=== PATIENT | female | born 1985 | race Hispanic/Latino ===

== ENCOUNTER 2017-11-09 07:27 | Observation (INO) | payer OTHER ==
[2017-11-08 09:06] VITALS: BMI 23.9
[2017-11-09] MEDS ORDERED: CEFAZOLIN/Water 2 GM/20 ML SYRINGE ONE (07:54)
[2017-11-09 08:30] LABS: #Basophils 0.1 thou/uL (0.0-0.2); #Eosinphils 0.1 thou/uL (0.0-0.7); #Lymphocytes 1.6 thou/uL (1.20-3.40); #Monocytes 0.3 thou/uL (0.11-0.59); %Basophils 0.7 % (0.0-1.0); %Eosinophils 1.5 % (0.0-10.0); %Lymphocytes 22.8 % (21.0-51.0); %Monocytes 4.4 % (0.0-10.0); Hematocrit 43.1 % (36.0-47.0); Mean Platelet Volume 6.7 fL (7.4-10.4); Red Blood Cell (RBC) Count 4.31 mill/uL (4.20-5.40); White Blood Cell (WBC) Count 7.1 thou/uL (4.8-10.8)
[2017-11-09] MEDS ORDERED: Midazolam HCl 2 mg/2 ml Vial ONE (08:38)
[2017-11-09] MEDS ORDERED: Fentanyl 250 MCG/5 ML VIAL ONE (08:49)
[2017-11-09] MEDS ORDERED: Bupivacaine/Epinephrine 0.25% 30 ML VIAL ONE ×2 (09:02→11:07)
[2017-11-09] MEDS ORDERED: Thrombin 5000 UNITS/5 ML VIAL ONE (09:02)
[2017-11-09 09:19] LABS: Bilirubin Negative (Negative); Glucose, Urine (Dipstick) Negative (Negative); Ketone, Urine Negative (Negative); Nitrite Negative (Negative); Protein, Urine (Dipstick) Negative (Neg-Trace); Urobilinogen 0.2 mg/dL (0.2-1.0)
[2017-11-09 09:21] LABS: Bacteria/HPF None Seen HPF (None Seen); Blood, Urine Trace (Negative); Hyaline Casts/LPF 0-3 HYALINE CAST LPF (0-3 Hyaline); Squamous Epithelial 0-3 HPF (0-3); WBC/HPF 0-3 HPF (0-3)
[2017-11-09] MEDS ORDERED: Scopolamine 1.5 mg/72 hour Patch ONE (10:04)
[2017-11-09] MEDS ORDERED: Calcium Chloride 1 GM/10 ML Abboject SYRINGE ONE (10:41)
[2017-11-09] MEDS ORDERED: diphenhydrAMINE 25 MG CAP PO PRN (12:06)
[2017-11-09] MEDS ORDERED: Bisacodyl 10 MG SUPP PR PRN (12:06)
[2017-11-09] MEDS ORDERED: Simethicone Chewable 80 MG TAB PO PRN (12:06)
[2017-11-09] MEDS ORDERED: HYDROcodone/Acetaminophen 10/325 mg Tablet PO PRN (12:06)
[2017-11-09] MEDS ORDERED: Zolpidem Tartrate 5 MG TAB PO PRN (12:06)
[2017-11-09] MEDS ORDERED: Ondansetron HCl/PF 4 MG/2 ML Vial IVP PRN ×2 (12:06→20:02)
[2017-11-09] MEDS ORDERED: Meperidine HCl/PF 25 MG/ML VIAL ONE (12:17)
[2017-11-09] MEDS ORDERED: Fentanyl 100 MCG/2 ML VIAL ONE ×2 (12:38→13:27)
[2017-11-09] MEDS: Lactated Ringer's 1,000 ML IV SCH ×2 (14:33→21:10)
[2017-11-09] MEDS ORDERED: Acetaminophen 1,000 MG in Premix Bag 1 BAG IVPB SCH (15:00)
[2017-11-09] MEDS ORDERED: Ketorolac Tromethamine 30 MG/ML VIAL ONE (15:42)
[2017-11-09] MEDS ORDERED: Ondansetron HCl/PF 4 MG/2 ML Vial ONE (15:42)
[2017-11-09] MEDS ORDERED: Dexamethasone 20 MG/5 ML VIAL ONE (15:42)
[2017-11-09] MEDS ORDERED: Propofol 200 MG/20 ML VIAL ONE (15:42)
[2017-11-09] MEDS ORDERED: PHENYLEPHRINE-NS 100 MCG/ML 10 ML SYRINGE ONE (15:42)
[2017-11-09] MEDS ORDERED: Glycopyrrolate 0.2 MG/ML 5 ML SYRINGE ONE (15:42)
[2017-11-09] MEDS: Ketorolac Tromethamine 30 MG/ML VIAL IVP SCH ×2 (17:53→23:43)
[2017-11-09] MEDS ORDERED: Ondansetron HCl/PF 4 MG/2 ML Vial SLOW IVP SCH (18:45)
[2017-11-10 06:00] LABS: Hematocrit 34.9 % (36.0-47.0); Mean Platelet Volume 6.9 fL (7.4-10.4); Red Blood Cell (RBC) Count 3.46 mill/uL (4.20-5.40); White Blood Cell (WBC) Count 9.9 thou/uL (4.8-10.8)
[2017-11-10] MEDS: Ibuprofen 800 MG TAB PO SCH ×2 (06:13→14:16)
[2017-11-10] MEDS: Lactated Ringer's 1,000 ML IV SCH ×2 (06:15→12:14)
[2017-11-10 12:01] VITALS: BP 101/54; TEMP 98.1
--- NOTE | 2017-11-10 17:16 | OP ---
ATTENDING STAFF PHYSICIAN: David Ochoa M.D. SURGEON: David Ochoa M.D PREOPERATIVE DIAGNOSES: 1. Menorrhagia. 2. Severe dysmenorrhea. 3. Clinical findings consistent with adenomyosis and uterine fibroids. 4. Painful abdominal scar from previous appendectomy. POSTOPERATIVE DIAGNOSES: 1. Menorrhagia. 2. Severe dysmenorrhea. 3. Surgical findings consistent with adenomyosis and uterine fibroids. 4. Painful abdominal scar from previous appendectomy. PROCEDURES PERFORMED. 1. Robotic hysterectomy. 2. Bilateral salpingectomy. 3. Abdominal scar revision. FINDINGS: 1. A 10-12-week size uterus. 2. Uterine sound to 10 cm. 3. Enlarged uterus, boggy and blanched with findings consistent with adenomyosis. 4. Normal fallopian tubes and ovaries. 5. Abdominal incision with scarring and retraction (previous appendectomy). COMPLICATIONS: None. SPECIMENS REMOVED: Cervix, uterus, fallopian tubes. BLOOD LOSS: Less than 100 mL. PROCEDURE FOLLOWS: After thorough consent and counseling, Mrs. Elizondo was taken to the operating room and adequate level of anesthesia was obtained via general endotracheal anesthesia. The patient was placed in the Eliel stirrups in a low leg position. Pelvic examination under anesthesia was perf ormed. Findings were consistent with that in the clinical setting. The patient was noted to have a uterus, which was enlarged and palpable above the pubic symphysis. On ultrasound in the clinical set ting, uterus was enlarged with areas consistent with extensive adenomyosis and small fibroids. The o varies appeared normal. There were no masses on EUA. There was no fixation or nodularity of the pos terior cul-de-sac. In addition, the patient was noted to have an unsightly scar from her previous ap pendectomy procedure. There was retraction and dimpling of the old scar, and we discussed scar dhruv ion during the surgical procedure. The patient was then prepped and draped in the usual sterile [facility] ion for both vaginal and abdominal surgery. A timeout was performed per protocol, and attention was then turned to performing the outlined surgical procedures. A speculum was placed in the vaginal canal and visualization of the cervix was obtained. A single-to oth tenaculum was placed on the anterior lip of the cervix for traction. The uterus sounded to just over 10 cm. Using Sandhu dilators, serial dilatation was performed. A stay ligature of 0 Vicryl sutu re was then placed on the cervix at the 3 o'clock and 9 o'clock position to affix to the manipulator. The FRANKIE uterine manipulator was then placed within the endometrial cavity and the balloon was insu fflated. The cervical collar was then carefully seated around the cervix. A Zamorano was placed in the bladder, which was noted to be draining clear urine. The vaginal balloon was inflated. Attention w as then turned to performing the robotic hysterectomy. An infraumbilical incision was made. The Veress needle was placed transabdominally with usual safegu ards carried out. Hanging drop water technique was utilized to ensure proper placement of the Veress needle. There was no evidence of any inadvertent bowel injury upon placement of the Veress needle. Using CO2 gas as an insufflation medium the auto insufflator, adequate pneumoperitoneum was obtained . The old scar from the patient's cholecystectomy was then removed, because of scarring and dimpling . A 12 mm trocar and sleeve was then carefully placed transabdominally with usual safeguards carried out through the umbilical incision. The da Jordyn laparoscopic camera was then carefully introduced into the abdomen. The upper abdomen was carefully inspected. There was no evidence of any inadverte nt bowel injury upon placement of the Veress needle or the abdominal trocar. Careful inspection of t he upper abdomen and the pelvis was then performed. The only abnormality found in the upper abdomen was a Prolene stitch, which was affixed to the abdominal wall, probably from her previous surgery. T his was removed at the end of the case. The uterus was noted to be significantly enlarged, measuring at least 12 weeks in size. Uterus was mobile. The uterus was elevated out of the pelvis using the FRANKIE uterine manipulator. The uterus was boggy and blanched with findings consistent with adenomyosi s. The fallopian tubes and ovaries were then carefully inspected and noted to be completely normal i n appearance. Under direct laparoscopic visualization, lateral ports were placed. Illumination tech nique was utilized to avoid vascular injury. The ports were placed without difficulties. There were two lateral ports placed on either side of the umbilical port and an inferior operative port on the right hand side in the lower quadrant. The patient was then docked to the robot per protocol, and I assumed my operative position at the surgical console. Under direct laparoscopic visualization, instrumentation was introduced into the abdomen and pelvis. Instruments used to perform the hysterectomy included the Kleppinger bipolar forceps and the electro surgical EndoShears. Initially, the fallopian tube was grasped on the right, coagulated and transect ed. The dissection was then taken down anteriorly and posteriorly through the broad ligament, down t o the level of the tubo-ovarian ligament. The CHRIS was then crossclamped, coagulated, and transected, and the right fallopian tube was removed from the operative field. The same procedure was performed on the left. The fallopian tubes were removed from the operative field and sent to pathology for ev aluation. The ovaries appeared completely normal. The ureters were then identified on the pelvic si dewalls bilaterally and noted to be traversing well out of the operative planes. The round ligament was then grasped on the right, crossclamped, coagulated, and transected. The same procedure was perf ormed on the left. The vesicouterine peritoneum was then carefully taken down anteriorly and inferio rly, creating a bladder flap. The bladder was pushed well off of the operative field. The uterine-o varian ligaments, and transected bilaterally. Using the same technique, serial pedicles were taken t hrough the broad ligament-cardinal ligament complex down to the level of the uterine vessels. Once a gain, the bladder was taken down anteriorly until the cervical collar on the FRANKIE uterine manipulator was easily identified. The uterine vessels were then skeletonized bilaterally. The vessels were th en crossclamped, coagulated, and transected. Good hemostasis was noted and minimal blood loss was ap preciated. The endopelvic fascia was then circumscribed directly over the cervical collar using the electrosurgical EndoShears. The vaginal canal was then entered without difficulty directly over the cervical collar anteriorly. Care was taken to make sure that the bladder was carefully and meticulou sly pushed out of the operative planes to avoid any inadvertent bladder injury. Once again, the uret ers were identified and traversing well out of the operative field. Once the vaginal canal was enter ed sharply, the cervix and uterus were removed from the remainder of the support structures. Once fr ee, the uterus was advanced into the vagina to maintain the pneumoperitoneum. The pelvis was then ca refully irrigated with copious amount of warm normal saline. The vaginal cuff was visualized and hem ostasis was obtained with Bovie cauterization using the electrosurgical EndoShears. The vaginal cuff was then closed with a running locking 0 Vicryl V-Loc suture. Good hemostasis was noted. The bladd er was noted to be draining clear urine. The pelvis was irrigated with copious amount of warm normal saline. All surgical sites were examined and noted to be hemostatic. The ureters were inspected an d noted to be well out of the operative planes. The anterior leaf of the peritoneum was incorporated into the vaginal cuff. The vaginal cuff was also sewn into the uterosacral ligaments for support. Because of the patient's history of multiple surgical procedures and the extensive dissection, autolo gous hemocyte tissue grafting was performed. Platelet poor plasma was injected over the vaginal cuff in the ovarian fossa bilaterally. Once the procedure was complete, the da Jordyn robotic camera was removed from the umbilical port. A small laparoscopic camera was placed in the lateral port. The um bilical trocar was removed and the Oswaldo-Kellee suture port was placed. Under direct visualizatio n, the umbilical fascia was reapproximated with a 0 Vicryl suture. Following completion of the proce dure and fascial closure of the umbilical port, the instruments and gas were removed from the abdomen . The lateral ports were then closed with a subcutaneous ligature of 2-0 plain suture. The incision s were then closed with subcuticular stitch of 4-0 Monocryl. The umbilical incision and scar revisio n was closed with multiple ligatures of 2-0 Vicryl suture to build up the subcutaneous tissue. Then several subcuticular ligatures of 2-0 plain suture. The umbilical incision was then carefully and me ticulously closed with a subcuticular stitch of 4-0 Monocryl. Because of the patient's allergy to De rmabond, it was not placed. Steri-Strips were then placed over the umbilical incision and the latera l incisions. Scar removal was then performed for the right vertical incision where appendectomy was performed. The perimeter of the scar was carefully marked and the incision was excised. Dissection was carried down to the fascia because of scarring and retraction. The incision was then carefully i njected with lidocaine and epinephrine as were the other incisions. The subcutaneous tissue was then built up in multiple layers with 2-0 plain suture. The skin was then closed with a subcuticular sti tch of 4-0 Monocryl. Steri-Strips and Band-Aids were placed over all incisions. Lap, sponge, and ne edle counts were correct x3. Estimated blood loss during the surgical procedure was less than 100 mL . The specimen and instruments were removed from the vagina. The bladder was noted to be draining chrissy r urine. A vaginal pack with Premarin cream was placed in the vagina for hemostasis purposes. The p atient was awakened, extubated, and taken to postanesthesia care unit in good condition. Immediately following the surgery, the patient and Dr. Elizondo were made aware of the surgical procedure and oper ative findings. Photodocumentation was performed and shared with the patient.
--- NOTE | 2017-11-10 22:13 | DIS ---
DATE OF ADMISSION: 11/09/2017 DATE OF DISCHARGE: 11/10/2017 ATTENDING STAFF PHYSICIAN: David Ochoa M.D. SURGEON: David Ochoa M.D. ADMITTING DIAGNOSES: 1. Menorrhagia, unresponsive to medical management. 2. Severe dysmenorrhea. 3. Clinical findings consistent with adenomyosis and uterine fibroids. 4. Painful abdominal incision. DISCHARGE DIAGNOSES: 1. Menorrhagia, unresponsive to medical management. 2. Severe dysmenorrhea. 3. Clinical findings consistent with adenomyosis and uterine fibroids. 4. Painful abdominal incision. PROCEDURES PERFORMED: 1. Robotic hysterectomy. 2. Bilateral salpingectomy. 3. Abdominal scar revision. COMPLICATIONS: None. INSTRUCTIONS: 1. No heavy lifting greater than 10-15 pounds until postoperative evaluation. 2. No driving on pain medications. 3. Notify physician for temperature greater than a 100.6, heavy vaginal bleeding or discharge, signs or symptoms of incision infection, or as needed. 4. Pelvic rest x6 weeks (no intercourse, douching, or tampons). DISCHARGE MEDICATIONS: 1. Tylenol No. 3 one p.o. q. 4 hours p.r.n. pain, #50. 2. Aleve OTC 3 tabs p.o. b.i.d. at breakfast and supper x5-7 days, then decreased to 2 tabs b.i.d. f or 5-7 days, then 1 b.i.d. until followup. 3. Ice packs to incision for 1 week postoperatively. HOSPITAL COURSE: Ms. Anya Elizondo is a very pleasant lady followed in my clinic for obstetric and ore puncher ecologic care. Anya was admitted to [facility] on 11/09/2017 with a d iagnosis of menorrhagia which was unresponsive to medical management. Clinically, she was found to horner ve adenomyosis and uterine fibroids. The decision was made to proceed with hysterectomy. She was ta tobias to the OR in the morning of 11/09/2017 and underwent robotic hysterectomy without problems. We p erformed an abdominal scar revision from her previous appendectomy, which was causing her pain and di scomfort. Her hospital course was not complicated and she requested discharge home on the afternoon of first postoperative day. At the time of discharge, she was ambulating, voiding, and tolerating p. o. well. She was given the above-noted discharge instructions which she verbalized understanding. S he will follow up with me in 2 weeks for postoperative evaluation. Prior to discharge, she and her h band, Dr. Joseph Elizondo reported that they are appreciative of the care rendered here at [facility] and will follow up as scheduled.
== END 2017-11-10 14:19 | disposition home or self-care (01) ==
LOC: SDC 07:27 → EDSTATUS 11:32 → 3SE 14:23
PROVIDERS: ADMIT Obstetrics & Gynecology; ATTEND Obstetrics & Gynecology
PROC: 0UT94ZZ Resection of Uterus, Percutaneous Endoscopic Approach (ICD-10-PCS; principal; 2017-11-09)
PROC: 0UTC4ZZ Resection of Cervix, Percutaneous Endoscopic Approach (ICD-10-PCS; 2017-11-09)
PROC: 0UT74ZZ Resection of Bilateral Fallopian Tubes, Percutaneous Endoscopic Approach (ICD-10-PCS; 2017-11-09)
PROC: 0JQ80ZZ Repair Abdomen Subcutaneous Tissue and Fascia, Open Approach (ICD-10-PCS; 2017-11-09)
PROC: 0HWPX7Z Revision of Autologous Tissue Substitute in Skin, External Approach (ICD-10-PCS; 2017-11-09)
DX: N85.01 Benign endometrial hyperplasia (principal); N72 Inflammatory disease of cervix uteri; L90.5 Scar conditions and fibrosis of skin; Z88.8 Allergy status to other drugs, medicaments and biological substances; Z90.49 Acquired absence of other specified parts of digestive tract
CPT/HCPCS: 36415; 81001; 84703; 85025; 85027; 88307; 96361; 96374; 96375; 96376; G0378; J0131; J1100; J1885; J2175; J2250; J2405; J2704; J3010

== ENCOUNTER 2022-02-17 09:43 | Outpatient (CLI) | payer BC | END 2022-02-17 09:44 | disposition home or self-care (01) | LOC: SCSMRI 09:43 | PROVIDERS: ATTEND Internal Medicine Gastroenterology | DX: R10.13 Epigastric pain (principal); K22.4 Dyskinesia of esophagus | CPT/HCPCS: 74183 ==